=== PATIENT | female | born 2000 | race African-American/Black ===

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

== ENCOUNTER 2018-06-17 01:04 | Emergency (ER) | payer MEDICAID ==
[~2018-06-17] VITALS: Ht 154.9 cm; Wt 59.0 kg
[2018-06-17 01:10] VITALS: BP 117/72
== END 2018-06-17 02:08 | disposition left against medical advice (07) ==
LOC: ER 01:04
DX: Z53.21 Procedure and treatment not carried out due to patient leaving prior to being seen by health care provider (principal)

== ENCOUNTER 2018-07-03 23:58 | Emergency (ER) | payer MEDICAID, OTHER ==
[~2018-07-03] VITALS: Ht 154.9 cm; Wt 59.0 kg
[2018-07-04 00:02] VITALS: BP 120/81
== END 2018-07-04 01:00 | disposition left against medical advice (07) ==
LOC: ER 23:58
DX: Z53.21 Procedure and treatment not carried out due to patient leaving prior to being seen by health care provider (principal)
CPT/HCPCS: 93005